=== PATIENT | female | born 2000 | race Caucasian/White ===

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

== ENCOUNTER 2020-02-19 03:59 | Outpatient (CLI) | payer BC, SELFPAY ==
[2020-02-19 15:16] LABS: Ammonia 21 umol/L (11-32)
[2020-02-19 15:22] LABS: HCT 39.3 % (36.0-46.0); HGB 13.2 g/dL (11.2-15.7); MCH 28.8 pg (27.0-33.0); MCHC 33.6 % (32.0-36.0); MCV 85.6 fL (80-95); MPV 10.1 fL (8.0-11.0); Platelet Count 373 10^3/uL (130-400); RBC 4.59 10^6/uL (3.93-5.22); RDW 12.7 % (11.7-14.6); RDW-SD 39.1 fL; WBC 5.65 10^3/uL (4.4-10.8)
[2020-02-19 15:29] LABS: PTT Activated 26.7 sec (21.0-27.5); Prothrombin Time 10.4 sec (9.3-11.0)
[2020-02-19 16:02] LABS: ALT 14 U/L (14-59); AST 22 U/L (15-37); Albumin 4.2 g/dL (3.4-5.0); Alkaline Phosphatase 58 U/L (46-116); Anion Gap 7.4 mmol/L (3-11); BUN 11 mg/dL (7-18); Bilirubin, Direct 0.09 mg/dL (0.00-0.20); Bilirubin, Total 0.5 mg/dL (0.2-1.0); CO2 27.6 mmol/L (21.0-32.0); CREATININE 0.78 mg/dL (0.55-1.02); Calcium 9.2 mg/dL (8.5-10.1); Chloride 102 mmol/L (98-107); Glucose 97 mg/dL (74-106); Potassium 3.9 mmol/L (3.5-5.1); Sodium 137 mmol/L (136-145)
[2020-02-19 16:22] LABS: Vitamin D 25 Total 46.5 ng/ml (30-100)
[2020-02-20 09:13] LABS: Prealbumin 27 mg/dL (20-40)
[2020-02-20 15:55] LABS: Fibrinogen Antigen, P 324 mg/dL (196 - 441)
[2020-02-22 17:57] LABS: Alpha-aminoadipic Acid 1 nmol/mL (<3); Gamma-amino-n-butyric Acid 0 nmol/mL (<2)
== END 2020-02-19 04:19 ==
PROVIDERS: PCP Nurse Practitioner Family; Visit Provider Medical Genetics Clinical Biochemical Genetics
DX: Z13.79 Encounter for other screening for genetic and chromosomal anomalies (principal)
CPT/HCPCS: 36415; 80048; 80076; 82306; 85027; 85385; 82139; 82140; 84134; 85610; 85730

== ENCOUNTER 2020-09-04 03:04 | Outpatient (CLI) | payer BC, SELFPAY ==
[2020-09-04 09:29] LABS: HCT 36.7 % (36.0-46.0); HGB 12.3 g/dL (11.2-15.7); MCH 28.8 pg (27.0-33.0); MCHC 33.5 % (32.0-36.0); MCV 85.9 fL (80-95); MPV 9.9 fL (8.0-11.0); Platelet Count 308 10^3/uL (130-400); RBC 4.27 10^6/uL (3.93-5.22); RDW 12.6 % (11.7-14.6); RDW-SD 39.4 fL; WBC 4.45 10^3/uL (4.4-10.8)
[2020-09-04 09:50] LABS: Ammonia < 10 umol/L (11-32)
[2020-09-04 09:54] LABS: PTT Activated 25.6 sec (21.0-27.5); Prothrombin Time 10.3 sec (9.3-11.0)
[2020-09-04 10:54] LABS: ALT 15 U/L (14-59); AST 17 U/L (15-37); Albumin 3.9 g/dL (3.4-5.0); Alkaline Phosphatase 61 U/L (46-116); Anion Gap 6.4 mmol/L (3-11); BUN 13 mg/dL (7-18); Bilirubin, Direct 0.1 mg/dL (0.0-0.2); Bilirubin, Total 0.3 mg/dL (0.2-1.0); CO2 30.6 mmol/L (21.0-32.0); CREATININE 0.7 mg/dL (0.55-1.02); Chloride 105 mmol/L (98-107); Glucose 93 mg/dL (74-106); Potassium 3.8 mmol/L (3.5-5.1); Sodium 142 mmol/L (136-145); Total Protein 7.4 g/dL (6.4-8.2)
[2020-09-04 17:20] LABS: Fibrinogen 243 mg/dl (171-384)
[2020-09-05 04:51] LABS: Vitamin D 25 Total 53.3 ng/mL (30-100)
[2020-09-05 09:49] LABS: Prealbumin 27 mg/dL (20-40)
[2020-09-06 13:14] LABS: Alpha-aminoadipic Acid 1 nmol/mL (<3); Gamma-amino-n-butyric Acid 0 nmol/mL (<2)
== END 2020-09-04 03:05 | disposition home or self-care (01) ==
LOC: LBO 03:04
PROVIDERS: PCP Nurse Practitioner Family; Visit Provider Medical Genetics Clinical Biochemical Genetics
DX: Z13.79 Encounter for other screening for genetic and chromosomal anomalies (principal)
CPT/HCPCS: 36415; 80048; 80076; 82306; 85027; 85384; 82139; 82140; 84134; 85610; 85730

== ENCOUNTER 2021-02-12 02:32 | Outpatient (CLI) | payer BC, SELFPAY ==
[2021-02-12 10:29] LABS: Ammonia 13 umol/L (11-32)
[2021-02-12 10:44] LABS: PTT Activated 26.9 sec (21.0-27.5); Prothrombin Time 10.4 sec (9.3-11.0)
[2021-02-12 11:13] LABS: ALT 15 U/L (14-59); AST 20 U/L (15-37); Alkaline Phosphatase 57 U/L (46-116); Bilirubin, Direct 0.1 mg/dL (0.0-0.2); Bilirubin, Total 0.4 mg/dL (0.2-1.0); Total Protein 7.4 g/dL (6.4-8.2)
[2021-02-13 00:21] LABS: Vitamin D 25 Total 46.2 ng/mL (30-100)
[2021-02-13 11:04] LABS: Prealbumin 27 mg/dL (20-40)
[2021-02-13 13:47] LABS: Fibrinogen Antigen, P 347 mg/dL (196 - 441)
[2021-02-17 19:10] LABS: Alpha-aminoadipic Acid 1 nmol/mL (<3); Gamma-amino-n-butyric Acid 0 nmol/mL (<2)
== END 2021-02-12 02:33 | disposition home or self-care (01) ==
LOC: LBO 02:32
PROVIDERS: PCP Nurse Practitioner Family; Visit Provider Medical Genetics Clinical Biochemical Genetics
DX: E72.22 Arginosuccinic aciduria (principal)
CPT/HCPCS: 36415; 80076; 82306; 85385; 82139; 82140; 84134; 85610; 85730

== ENCOUNTER 2021-09-10 03:51 | Outpatient (CLI) | payer BC, SELFPAY ==
[2021-09-10 16:09] LABS: Ammonia < 10 umol/L (11-32)
[2021-09-10 17:00] LABS: ALT 22 U/L (14-59); AST 20 U/L (15-37); Albumin 3.8 g/dL (3.4-5.0); Alkaline Phosphatase 67 U/L (46-116); Bilirubin, Direct 0.1 mg/dL (0.0-0.2); Bilirubin, Total 0.4 mg/dL (0.2-1.0); Total Protein 7.1 g/dL (6.4-8.2)
[2021-09-10 17:25] LABS: PTT Activated 27.7 sec (21.0-27.5); Prothrombin Time 10.1 sec (9.3-11.0)
[2021-09-11 04:43] LABS: Vitamin D 25 Total 49.9 ng/mL (30-100)
[2021-09-11 09:40] LABS: Prealbumin 24 mg/dL (20-40)
[2021-09-11 15:36] LABS: Fibrinogen Antigen, P 295 mg/dL (196 - 441)
[2021-09-12 14:19] LABS: Alpha-aminoadipic Acid 1 nmol/mL (<3); Gamma-amino-n-butyric Acid 0 nmol/mL (<2)
== END 2021-09-10 03:52 | disposition home or self-care (01) ==
LOC: LBO 03:51
PROVIDERS: PCP Nurse Practitioner Family; Visit Provider Medical Genetics Clinical Biochemical Genetics
DX: E72.20 Disorder of urea cycle metabolism, unspecified (principal)
CPT/HCPCS: 36415; 80076; 82306; 85385; 82139; 82140; 84134; 85610; 85730

== ENCOUNTER 2021-10-11 23:19 | Emergency (ER) | payer BC, SELFPAY ==
[2021-10-11] VITALS (8 sets, daily range): BP systolic 116–124; BP diastolic 65–75; PULSE 64–76; RESP 18; TEMP 36.6; O2SAT 97–100
--- NOTE | 2021-10-11 23:15 | DI.CT_ITS ---
Exam(s) CT HEAD CERVICAL SPINE WO EXAM: CT HEAD CERVICAL SPINE WO CLINICAL HISTORY: fall, head pain. TECHNIQUE: Imaging Protocol: Axial computed tomography images with coronal and sagittal reformatted images were created and reviewed COMPARISON: No exams were available for comparison FINDINGS: BRAIN: There are no skull fractures nor fluid in the visualized paranasal sinuses. There is no evidence of intracranial hemorrhage, mass effect, or shift of midline structures. There are no extra-axial fluid collections. The ventricles are not enlarged or shifted and there is no blo od within the ventricular system nor within the basal cisterns. CERVICAL SPINE: There is no evidence of fracture nor listhesis. No significant prevertebral soft tissue swelling. There is no significant facet joint malalignment. No significant osseous lesions evident. IMPRESSION: No acute intracranial findings on this noninfused CT scan of the brain. No evidence of cervical spine fracture, malalignment, nor acute compromise of the cervical spinal can al. RADIATION DOSE DELIVERED: 1,200.01mGy.cm Total DLP DATA REPOSITORY: All CT scans at this facility are submitted to the National Radiology Data Registry (NRDR) Dose Index Registry (DIR) with the [employer] (ACR). RADIATION OPTIMIZATION: All CT scans at this facility use at least one of these dose optimization te chniques: automated exposure control; mA and/or kV adjustment per patient size (includes targeted exa ms where dose is matched to clinical indication); or iterative reconstruction.
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
[2021-10-11 23:43] LABS: Abs Immature Grans 0.02 10^3/uL (0.0-0.06); Absolute Basophil Count 0.03 10^3/uL (0.0-0.2); Absolute Eosinophil Count 0.06 10^3/uL (0.0-0.7); Absolute Lymphocyte Count 3.61 10^3/uL (1.2-3.4); Absolute Monocyte Count 0.67 10^3/uL (0.1-0.8); Absolute Neutrophil Count 4.23 10^3/uL (1.2-6.7); BE (Venous) 2 mmol/L (-2-3); Basophils % 0.3; Eosinophils % 0.7; HCO3 (Venous) 27 mmol/L (23-28); HCT 37.3 % (36.0-46.0); HGB 13.1 g/dL (11.2-15.7); Immature Grans % 0.2; Lymphocytes % 41.9; MCH 29.4 pg (27.0-33.0); MCHC 35.1 % (32.0-36.0); MCV 84 fL (80-95); MPV 9.8 fL (8.0-11.0); Monocytes % 7.8; Neutrophils % 49.1; O2 Sat (Venous) 86 %; Platelet Count 328 10^3/uL (130-400); RBC 4.46 10^6/uL (3.93-5.22); RDW 11.9 % (11.7-14.6); RDW-SD 36.2 fL; TCO2 (Venous) 24 mmol/L (24-29); WBC 8.62 10^3/uL (4.4-10.8); pCO2 (Venous) 43 mmHg (41-51); pO2 (Venous) 50 mmHg
[2021-10-12] VITALS (14 sets, daily range): BP systolic 100–122; BP diastolic 54–86; PULSE 54–65; O2SAT 95–99
[2021-10-12 00:05] LABS: Ammonia < 10 umol/L (11-32)
[2021-10-12 00:06] LABS: ALT 17 U/L (14-59); AST 18 U/L (15-37); Albumin 3.8 g/dL (3.4-5.0); Alkaline Phosphatase 56 U/L (46-116); Anion Gap 8.6 mmol/L (3-11); BUN 12 mg/dL (7-18); Bilirubin, Total 0.4 mg/dL (0.2-1.0); CO2 27.4 mmol/L (21.0-32.0); CREATININE 0.8 mg/dL (0.55-1.02); Chloride 104 mmol/L (98-107); Glucose 112 mg/dL (74-106); Lipase 81 U/L (73-393); Magnesium 1.9 mg/dL (1.8-2.4); Potassium 3.5 mmol/L (3.5-5.1); Sodium 140 mmol/L (136-145); TSH (W/Ref FT4) 2.78 uIU/mL (0.36-3.74); Total Protein 7.4 g/dL (6.4-8.2)
[2021-10-12] MEDS: ACETAMINOPHEN 1,000 MG/100 ML BTL 400 MG IVPB (00:06)
[2021-10-12 00:07] LABS: ETHANOL BLOOD < 3.0 mg/dL (<10)
[2021-10-12] MEDS: [UNRECOGNIZED DRUG - OTHER] IV (00:12)
[2021-10-12] MEDS: DEXTROSE IV (00:12)
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
[2021-10-12] MEDS: Prochlorperazine 10 MG/2 ML VIAL IVP (00:35)
[2021-10-12] MEDS: Ketorolac 15 MG/ML VIAL IVP (00:35)
== END 2021-10-12 01:56 | disposition home or self-care (01) ==
LOC: ER 10-12 01:41
PROVIDERS: Emergency Provider Emergency Medicine; PCP Nurse Practitioner Family
DX: E72.22 Arginosuccinic aciduria (principal); S09.90XA Unspecified injury of head, initial encounter; X58.XXXA Exposure to other specified factors, initial encounter
CPT/HCPCS: 80053; 81025; 82805; 83690; 96365; 96366; 96375; 99284; 70450; 72125; 80320; 82140; 83735; 84443; 85025; J0131; J0780; J1885

== ENCOUNTER 2022-01-28 03:07 | Outpatient (CLI) | payer BC, SELFPAY ==
[2022-01-28 16:26] LABS: Abs Immature Grans 0.02 10^3/uL (0.0-0.06); Absolute Basophil Count 0.03 10^3/uL (0.0-0.2); Absolute Eosinophil Count 0.07 10^3/uL (0.0-0.7); Absolute Lymphocyte Count 2.85 10^3/uL (1.2-3.4); Absolute Monocyte Count 0.39 10^3/uL (0.1-0.8); Absolute Neutrophil Count 4.08 10^3/uL (1.2-6.7); Basophils % 0.4; ESR < 1 mm/hr (0-20); Eosinophils % 0.9; HCT 37.3 % (36.0-46.0); Immature Grans % 0.3; Lymphocytes % 38.3; MCH 29.7 pg (27.0-33.0); MCHC 34.9 % (32.0-36.0); MCV 85 fL (80-95); MPV 10.2 fL (8.0-11.0); Monocytes % 5.2; Neutrophils % 54.9; Platelet Count 303 10^3/uL (130-400); RBC 4.38 10^6/uL (3.93-5.22); RDW 11.9 % (11.7-14.6); RDW-SD 37.1 fL; WBC 7.44 10^3/uL (4.4-10.8)
[2022-01-28 16:35] LABS: Bilirubin Negative (Negative); Blood Negative (Negative); Clarity Sl Cloudy (Clear); Glucose Negative (Negative); Ketones Negative (Negative); Leukocyte Esterase Small (Negative); Nitrite Negative (Negative); Specific Gravity >= 1.030 (1.005-1.025); Urobilinogen 0.2 EU/dL (Up TO 0.2); pH 6.5 (5-8)
[2022-01-28 16:37] LABS: Ammonia 16 umol/L (11-32)
[2022-01-28 16:49] LABS: Bacteria Moderate HPF (Negative); C & S Indicated? No/Sq. Contamination; Crystals Negative HPF (Negative); Epithelial Cells Many HPF (Negative); Mucus Negative (Negative); RBC 0-2 HPF (0-2)
[2022-01-28 17:09] LABS: Iron 143 ug/dL (50-170); Total Iron Binding Capacity 440 ug/dL (250-450); Transferrin Sat 33 % (15-50)
[2022-01-28 17:21] LABS: ALT 14 U/L (14-59); AST 22 U/L (15-37); Alkaline Phosphatase 57 U/L (46-116); BUN 14 mg/dL (7-18); Bilirubin, Direct 0.1 mg/dL (0.0-0.2); Bilirubin, Total 0.4 mg/dL (0.2-1.0); C-Reactive Protein 0.12 mg/dL (0.0-0.3); CREATININE 0.7 mg/dL (0.55-1.02); Chloride 101 mmol/L (98-107); Estimated GFR 126.11 (mL/min/1.73m2); Glucose 98 mg/dL (74-106); Potassium 3.6 mmol/L (3.5-5.1); Sodium 137 mmol/L (136-145); TSH 1.36 uIU/mL (0.36-3.74); Total Protein 7.3 g/dL (6.4-8.2)
[2022-01-28 18:03] LABS: Ferritin 27 ng/mL (8-252); Vitamin B12 440 pg/mL (193-986)
[2022-01-30 08:46] LABS: Prealbumin 27 mg/dL (20-40)
[2022-01-30 09:42] LABS: EBNA IgG Negative (Negative); EBV Interpretation (See Note); VCA IgG Positive (Negative); VCA IgM Negative (Negative)
[2022-01-31 12:32] LABS: Zinc, S 76 mcg/dL (60-106)
[2022-02-04 13:43] LABS: 25-Hydroxy D Total 88 ng/mL; 25-Hydroxy D2 <4.0 ng/mL; 25-Hydroxy D3 88 ng/mL
== END 2022-01-28 03:08 | disposition home or self-care (01) ==
LOC: LBO 03:08
PROVIDERS: PCP Nurse Practitioner Family; Visit Provider Medical Genetics Clinical Biochemical Genetics
DX: E72.20 Disorder of urea cycle metabolism, unspecified (principal)
CPT/HCPCS: 36415; 80053; 80076; 82306; 84630; 85652; 81003; 81015; 82139; 82140; 82607; 82728; 83540; 83550; 84134; 84436; 84443; 85025; 86140; 86664; 86665

== ENCOUNTER 2022-01-30 01:06 | Outpatient (CLI) | payer BC, SELFPAY ==
[2022-02-03 13:49] LABS: Alpha-aminoadipic Acid 1 nmol/mL (<3); Gamma-amino-n-butyric Acid 0 nmol/mL (<2)
== END 2022-01-30 01:07 | disposition home or self-care (01) ==
LOC: LBO 01:06
PROVIDERS: PCP Nurse Practitioner Family; Visit Provider Medical Genetics Clinical Biochemical Genetics
DX: E72.20 Disorder of urea cycle metabolism, unspecified (principal)
CPT/HCPCS: 36415; 82139